=== PATIENT | female | born 1970 | race Two or more races ===

== ENCOUNTER 2016-10-18 17:56 | Emergency (ER) | payer OTHER ==
[~2016-10-18] VITALS: Ht 167.6 cm; Wt 89.5 kg
[2016-10-18] MEDS ORDERED: SODIUM CHLORIDE FLUSH 10ML SYR IVF ONE (18:30)
[2016-10-18] MEDS ORDERED: ONDANSETRON 2MG/ML, 2ML IVPush ONE (18:30)
[2016-10-18] MEDS ORDERED: SODIUM CHLORIDE 0.9% 1,000ML IVBOLUS ONE (18:30)
[2016-10-18 18:50] LABS: HEMATOCRIT 41.4 % (34.6-47.8); HEMOGLOBIN 14.3 g/dL (11.7-16.4); WHITE BLOOD COUNT 10.2 x10^3/uL (3.4-10)
[2016-10-18 18:56] LABS: BLOOD UREA NITROGEN 12 mg/dL (7-18)
[2016-10-18] MEDS ORDERED: ONDANSETRON 2MG/ML, 2ML ONE (19:46)
[2016-10-18] MEDS ORDERED: HYDROmorphone 1 MG/ML, 1ML IVPush PRN (20:00)
[2016-10-18] MEDS ORDERED: HYDROmorphone 1 MG/ML, 1ML ONE (20:13)
[2016-10-18] MEDS ORDERED: CEFTRIAXONE PMX 1GM/50ML 50 ML ONE (20:13)
[2016-10-18] MEDS ORDERED: LEVO112T4 PO (20:19)
[2016-10-18] MEDS ORDERED: CEFTRIAXONE PMX 1GM/50ML 50 ML IVPB ONE (20:30)
[2016-10-18 21:57] VITALS: BP 106/67
== END 2016-10-18 22:08 | disposition home or self-care (01) ==
LOC: ED 21:50
DX: N10 Acute pyelonephritis (principal); Z90.710 Acquired absence of both cervix and uterus; E03.9 Hypothyroidism, unspecified
CPT/HCPCS: 36415; 74176; 80048; 81001; 82040; 83605; 85025; 87040; 87077; 87086; 96361; 96365; 96375; 99285; J0696; J1170; J2405; J7030; 87186